=== PATIENT | male | born 1945 | race Caucasian/White ===

== ENCOUNTER → 2024-08-28 13:17 | Outpatient (BNVA) | payer MEDICARE, SELFPAY | PROVIDERS: Visit Provider Orthopaedic Surgery | DX: M25.512 Pain in left shoulder (principal); S49.92XA Unspecified injury of left shoulder and upper arm, initial encounter; X58.XXXA Exposure to other specified factors, initial encounter; Z01.818 Encounter for other preprocedural examination | CPT/HCPCS: 36415; 73030; 80053; 81001; 85025; 87086; 99204 ==

== ENCOUNTER → 2024-08-31 08:32 | Outpatient (BNVA) | payer MEDICARE, SELFPAY | PROVIDERS: Visit Provider Family Medicine | DX: Z01.818 Encounter for other preprocedural examination (principal) | CPT/HCPCS: 93005 ==

== ENCOUNTER 2024-09-05 07:16 | Day surgery (SDC) | payer MEDICARE, SELFPAY ==
[2024-09-05] VITALS (8 sets, daily range): BP systolic 125–179; BP diastolic 78–87; PULSE 52–73; RESP 16–18; TEMP 36.1–36.3; O2SAT 97–99; BMI 25.1
[2024-09-05] MEDS: sodium chloride 0.9% 1,000 ML 30 ML IV (07:45)
--- NOTE | 2024-09-05 08:38 | W.PM.OPSFHP ---
Same Day Surgery H&P Indication for Procedure/HPI DATE OF PROCEDURE: September 05, 2024 CHIEF COMPLAINT/INDICATIONFOR SURGICAL PROCEDURE: Left shoulder torn rotator cuff PREOP DIAGNOSIS: Torn rotator cuff left shoulder PLANNED PROCEDURE: Operation Date: 09/05/24 08:50 Proposed Procedures p SHOULDER DIAGNOSTIC AND SURGICAL ARTHROSCOPOY(Left) - Marcelo Park MD s Rotator Cuff Repair - Arthroscopy(Left) - Marcelo Park MD Medications/Allergies* Home Medications ?Medication ?Instructions ?Recorded ?Confirmed ?Type lansoprazole 15 mg capsule,delayed 15 mg PO DAILY 08/31/24 09/04/24 History release (Prevacid 24Hr) saw palm 100 mg-Pyge[place] 35 1 tab PO DAILY 08/31/24 09/04/24 History ly-xhwxmz-rylqxtf-ikunv-M8-nwpmq-zinc tablet (Superior Prostate) Allergies/Adverse Reactions Allergy/AdvReac Type Severity Reaction Status Date / Time codeine Allergy Severe headache Verified 09/05/24 07:37 Current Medications: Generic Name Dose Route Start Last Admin Trade Name Trevorq PRN Reason Stop Dose Admin Sodium Chloride 1,000 mls @ 30 mls/hr 09/05/24 07:30 09/05/24 07:45 Sodium Chloride 0.9% IV 09/06/24 07:29 30 mls/hr .Q24H RADHA Administration Pertinent History/Comorbid Conditions* Social History Smoking and tobacco/nicotine status: never used tobacco/nicotine Pertinent Exam Findings alert, oriented x 3, clear to auscultation bilaterally, regular rate & rhythm, operative site marked and procedure specific exam findings Recommendations Risks and benefits of procedure reviewed and Patient/family agree to proceed Surgery/Procedure today Coding Level of Care Code Acute Code for Chg Fwd
--- NOTE | 2024-09-05 08:44 | ANES.PREANE2 ---
Pre-Anesthetic Assessment Height/Weight: Height 5 ft 11 in Weight 180 lb Temp Pulse Resp BP Pulse Ox O2 Del Method 97.0 F L 52 L 18 179/81 99 Room Air 09/05/24 07:30 09/05/24 07:30 09/05/24 07:30 09/05/24 07:30 09/05/24 07:30 09/05/24 07:34 Preop Diagnosis: Torn rotator cuff left shoulder Operation Date: 09/05/24 08:50 Proposed Procedures p SHOULDER DIAGNOSTIC AND SURGICAL ARTHROSCOPOY(Left) - Marcelo Park MD s Rotator Cuff Repair - Arthroscopy(Left) - Marcelo Park MD Was Beta Juan taken within 24 hours: N/A Was Clonidine taken within 24 hours: N/A Last intake: Intake Last Liquid Date 09/04/24 Last Liquid Time 21:00 Last Solid Date 09/04/24 Last Solid Time 21:00 Social No alcohol and No tobacco Exam alert, oriented x 3, clear to auscultation bilaterally and regular rate & rhythm Airway Submandibular: within normal limits Cervical ROM: within normal limits Mallampati: Class II Dentition: full Anesthetic Plan ASA status: 2 Anesthesia: General Other: No prior issues with anesthesia NPO since yesterday evening History of GERD, on lansoprazole Denies any cardiac issues Labs reviewed from 08/28/2024 and acceptable for procedure today Very active individual, hurt his shoulder in a softball game Plan for general anesthesia with preop nerve block Medications/Allergies Home Medications ?Medication ?Instructions ?Recorded ?Confirmed ?Last Taken ?Type lansoprazole 15 mg capsule,delayed 15 mg PO DAILY 08/31/24 09/04/24 09/04/24 History release (Prevacid 24Hr) saw palm 100 mg-Pygeum 35 1 tab PO DAILY 08/31/24 09/04/24 09/04/24 History sf-rqdcir-uequnrh-kpgil-M8-hrwqx-zinc tablet (Superior Prostate) Allergies Allergy/AdvReac Type Severity Reaction Status Date / Time codeine Allergy Severe headache Verified 09/05/24 07:37 Current Medications Generic Name Dose Route Start Last Admin Trade Name Freq PRN Reason Stop Dose Admin Sodium Chloride 1,000 mls @ 30 mls/hr 09/05/24 07:30 09/05/24 07:45 Sodium Chloride 0.9% IV 09/06/24 07:29 30 mls/hr .Q24H RADHA Administration PFSH Anesthesia Social History Smoking and tobacco/nicotine status: never used tobacco/nicotine Data Anesthesia Cardiac Studies: No Data to Display
--- NOTE | 2024-09-05 09:10 | ANES.PROC ---
Anesthesia Procedures Procedure/Date: 09/05/24 Nerve Block ^: Nerve Block 1: Main Anesthesia: other (100 mcg fentanyl) Time Out Performed: Yes Consent: requested by attending/covering physician and from patient Nerve block location: interscalene Anesthesia monitors applied: pulse oximetry, EKG, BP cuff and oxygen Nerve block position: supine Anesthetic Used: ropivicaine 0.5% Amount of anesthesia used (mL): 30 Ultrasound used to: recognize landmarks Nerve Stimulator Used?: Yes Interscalene/Femoral BLK: other needle (pjunk ) Injection: neg aspiration of heme Patient Tolerated Procedure: well Complications: none Additional Comments: Decadron 4 mg added to block
--- NOTE | 2024-09-05 09:18 | SUR.PREOP ---
0910 time out completed preoperative interscalenic block preformed on left side. 30ml of 0.5% ropivicaine used. patient placed on monitor and 2l o2 prior to procedure. patient tolerated well.
[2024-09-05] MEDS: ceFAZolin 2,000 mg SDV 2000 MG IVP (09:21)
[2024-09-05] MEDS: ondansetron 2 mg/ML SDV 2 mL 4 MG IVP ×2 (11:15→11:47)
--- NOTE | 2024-09-05 14:52 | ANE.PACU2 ---
Inpatient post-anesthesia follow up: Airway intact: Yes Vital signs: Temperature 97.2 F Pulse Rate 64 Respiratory Rate 16 Blood Pressure 125/84 Pulse Oximetry 97 Oxygen Delivery Me thod Room Air Oxygen Flow Rate Fraction of Inspir ed Oxygen Hydration adequate: Yes Nausea and vomiting: No Pain level: 1 Mental status: Baseline
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
== END 2024-09-05 12:25 | disposition home or self-care (01) ==
PROVIDERS: Visit Provider Orthopaedic Surgery
PROC: (CPT 29805; principal; 2024-09-05 08:50)
PROC: 0LQ24ZZ Repair Left Shoulder Tendon, Percutaneous Endoscopic Approach (ICD-10-PCS; CPT 29827; 2024-09-05 08:50)
DX: S46.012A Strain of muscle(s) and tendon(s) of the rotator cuff of left shoulder, initial encounter (principal); M75.42 Impingement syndrome of left shoulder; S43.492A Other sprain of left shoulder joint, initial encounter; K21.9 Gastro-esophageal reflux disease without esophagitis; W01.0XXA Fall on same level from slipping, tripping and stumbling without subsequent striking against object, initial encounter; Z79.899 Other long term (current) drug therapy; Z88.5 Allergy status to narcotic agent
CPT/HCPCS: 23410; 29822; C1713; J0690; J1100; J2405; J2704; J3010; J3490; J7030; J9999

== ENCOUNTER → 2024-09-20 10:43 | Outpatient (BNVA) | payer MEDICARE, SELFPAY | PROVIDERS: PCP Orthopaedic Surgery; Visit Provider Orthopaedic Surgery | DX: Z98.890 Other specified postprocedural states (principal) | CPT/HCPCS: 99024 ==

== ENCOUNTER → 2024-10-01 10:11 | Outpatient (BNVA) | payer MEDICARE, SELFPAY | PROVIDERS: PCP Orthopaedic Surgery; Visit Provider Orthopaedic Surgery | DX: Z98.890 Other specified postprocedural states (principal) | CPT/HCPCS: 99024 ==

== ENCOUNTER 2024-10-16 09:48 | Outpatient (RCR) | payer MEDICARE, SELFPAY | END 2024-10-27 23:59 | disposition home or self-care (01) | LOC: SPT 09:48 | PROVIDERS: Visit Provider Orthopaedic Surgery | DX: Z98.890 Other specified postprocedural states (principal) | CPT/HCPCS: 97110; 97140; 97161 ==

== ENCOUNTER 2024-10-28 05:00 | Outpatient (RCR) | payer MEDICARE, SELFPAY | END 2024-11-26 23:59 | disposition home or self-care (01) | LOC: SPT 05:00 | PROVIDERS: PCP Family Medicine; Visit Provider Orthopaedic Surgery | DX: Z98.890 Other specified postprocedural states (principal) | CPT/HCPCS: 97110; G0283 ==

== ENCOUNTER → 2024-10-29 09:14 | Outpatient (BNVA) | payer MEDICARE, SELFPAY | PROVIDERS: PCP Family Medicine; Visit Provider Orthopaedic Surgery | DX: Z98.890 Other specified postprocedural states (principal) | CPT/HCPCS: 99024 ==

== ENCOUNTER 2024-11-27 05:00 | Outpatient (RCR) | payer MEDICARE, SELFPAY | END 2024-12-27 23:59 | disposition home or self-care (01) | LOC: SPT 05:00 | PROVIDERS: PCP Family Medicine; Visit Provider Orthopaedic Surgery | DX: Z98.890 Other specified postprocedural states (principal) | CPT/HCPCS: 97110; 97150 ==

== ENCOUNTER → 2024-12-13 12:51 | Outpatient (BNVA) | payer MEDICARE, SELFPAY | PROVIDERS: PCP Family Medicine; Visit Provider Orthopaedic Surgery | DX: Z98.890 Other specified postprocedural states (principal) | CPT/HCPCS: 99024 ==

== ENCOUNTER 2024-12-28 05:00 | Outpatient (RCR) | payer MEDICARE, SELFPAY | END 2025-01-27 23:59 | disposition home or self-care (01) | LOC: SPT 05:00 | PROVIDERS: PCP Family Medicine; Visit Provider Orthopaedic Surgery | DX: Z98.890 Other specified postprocedural states (principal) | CPT/HCPCS: 97110 ==

== ENCOUNTER 2025-01-28 05:00 | Outpatient (RCR) | payer MEDICARE, SELFPAY | END 2025-02-26 23:59 | disposition home or self-care (01) | LOC: SPT 05:00 | PROVIDERS: PCP Family Medicine; Visit Provider Orthopaedic Surgery | DX: Z47.89 Encounter for other orthopedic aftercare (principal) | CPT/HCPCS: 97110 ==

== ENCOUNTER → 2025-02-05 10:37 | Outpatient (BNVA) | payer MEDICARE, SELFPAY | PROVIDERS: PCP Family Medicine; Visit Provider Orthopaedic Surgery | DX: Z98.890 Other specified postprocedural states (principal) | CPT/HCPCS: 99213 ==